=== PATIENT | female | born 1945 ===

== ENCOUNTER 2017-05-14 19:41 | Emergency (ER) | payer MEDICARE ==
[2017-05-14] MEDS ORDERED: Oseltamivir CAP* 75 MG CAP PO ONE (20:45)
--- NOTE | 2017-05-14 20:45 | UC ---
FLU HPI - HPI Summary HPI Summary: Pt presents with dry cough, body aches, fatigue, and headaches for the last 2 days. She has taken tylenol for her symptoms with little relief. She denies fever, chills, SOB, chest pain, abdominal pain, n/v/d/c - History of Current Complaint Hx Obtained From: Patient Severity Currently: Moderate Severity Initially: Moderate Pain Intensity: 5 Pain Scale Used: 0-10 Numeric <Kenton Vazquez - Last Filed: 05/15/17 17:54> <Jennifer Granda - Last Filed: 05/16/17 07:12> - History of Current Complaint Chief Complaint: UCGeneralIllness Stated Complaint: FLU SYMPTOMS Time Seen by Provider: 05/14/17 20:28 - Allergy/Home Medications Allergies/Adverse Reactions: Allergies Allergy/AdvReac Type Severity Reaction Status Date / Time Penicillins Allergy Anaphylatic Verified 05/14/17 20:07 Shock Sulfa (Sulfonamide Allergy Anaphylatic Verified 05/14/17 20:07 Antibiotics) Shock PMH/Surg Hx/FS Hx/Imm Hx Previously Healthy: Yes - Surgical History Surgical History: Yes Surgery Procedure, Year, and Place: Hernia, hysterectomy, joint replacement - Family History Known Family History: Positive: None - Social History Occupation: Retired Lives: With Family Alcohol Use: None Substance Use Type: None Smoking Status (MU): Never Smoked Tobacco <Kenton Vazquez - Last Filed: 05/15/17 17:54> Review of Systems Constitutional: Fatigue, Other - Body aches Skin: Negative Eyes: Negative ENT: Negative Respiratory: Cough Cardiovascular: Negative Gastrointestinal: Negative Neurovascular: Negative Musculoskeletal: Negative Neurological: Headache Psychological: Negative All Other Systems Reviewed And Are Negative: Yes <Kenton Vazquez - Last Filed: 05/15/17 17:54> Physical Exam Triage Information Reviewed: Yes Appearance: No Pain Distress, Well-Nourished, Ill-Appearing - Mildly Vital Signs: Initial Vital Signs Temp 97.6 F 05/14/17 20:01 Pulse 89 05/14/17 20:01 Resp 20 05/14/17 20:01 BP 126/92 05/14/17 20:01 Pulse Ox 100 05/14/17 20:01 Vital Signs Reviewed: Yes Eyes: Positive: Conjunctiva Clear. Negative: Conjunctiva Inflamed, Discharge ENT: Positive: Hearing grossly normal, Pharynx normal, TMs normal, Uvula midline. Negative: Pharyngeal erythema, Nasal congestion, Nasal drainage, TM bulging, TM dull, TM red, Tonsillar swelling, Tonsillar exudate, Hoarse voice, Sinus tenderness Neck: Positive: Supple, Nontender, No Lymphadenopathy Respiratory: Positive: Chest non-tender, Lungs clear, Normal breath sounds, No respiratory distress, No accessory muscle use Cardiovascular: Positive: RRR, No Murmur, Pulses Normal Neurological: Positive: Fatigued Psychological: Positive: Age Appropriate Behavior Skin: Negative: rashes <Kenton Vazquez - Last Filed: 05/15/17 17:54> Vital Signs: Initial Vital Signs Temp 97.6 F 05/14/17 20:01 Pulse 89 05/14/17 20:01 Resp 20 05/14/17 20:01 BP 126/92 05/14/17 20:01 Pulse Ox 100 05/14/17 20:01 <Jennifer Granda - Last Filed: 05/16/17 07:12> Flu Course/Dx - Course Course Of Treatment: Influenza A positive. Start with tamiflu - Differential Dx/Diagnosis Provider Diagnoses: Influenza A <Kenton Vazquez - Last Filed: 05/15/17 17:54> Discharge <Kenton Vazquez - Last Filed: 05/15/17 17:54> <Jennifer Granda - Last Filed: 05/16/17 07:12> - Discharge Plan Condition: Stable Disposition: HOME Prescriptions: Oseltamivir CAP* [Tamiflu CAP*] 75 mg PO BID #8 cap Oseltamivir CAP* [Tamiflu CAP*] 75 mg PO BID #1 cap Patient Education Materials: Influenza (DC) Referrals: No Primary Care Phys,NOPCP [Primary Care Provider] - Additional Instructions: If you develop a fever, shortness of breath, chest pain, new or worsening symptoms - please call your PCP or go to the ED. Your blood pressure was mildly elevated at todays visit. Please see your primary provider within 4 weeks for recheck and re-evaluation. Attestation Statement User Type: Provider - I was available for consult. This patient was seen by the advanced practice provider. The patient was not presented to, seen by, or examined by me.-Jannie <Jesus Alberto,Jennifer - Last Filed: 05/16/17 07:12>
== END 2017-05-14 21:36 | disposition home or self-care (01) ==
LOC: UCEAST 19:41
DX: J10.1 Influenza due to other identified influenza virus with other respiratory manifestations (principal); Z88.0 Allergy status to penicillin; Z88.2 Allergy status to sulfonamides
CPT/HCPCS: 87502; 99202; A9270-GY; G0463